=== PATIENT | female | born 1960 | race Caucasian/White ===

== ENCOUNTER → 2016-10-01 | Day surgery (SDC) | payer OTHER ==
[~2016-10-01] VITALS: Ht 162.6 cm; Wt 86.0 kg
[~2016-10-01] MED LIST: EFFEXOR XR75 MG PO; LEVOTHROID (S137 MCG PO; PRINIVIL (ZESTR20 MG PO; TYLENOL WITH C1 EACH PO; VITAMIN B-1000 MCG/M SUB-Q
--- NOTE | ~2016-10-01 | OR ---
PATIENT'S NAME: EMEKA SABILLON [facility] AGE: 56 Y [address] ROOM: [place] [address] LOCATION: [facility] [place] ADMIT DATE: 10/01/2016 OR/Procedure Report DISCHARGE DATE: FAMILY PHYSICIAN: Vanda Patel MD ATTENDING PHYSICIAN: Afsaneh Haile SURGEON: Afsaneh Haile MD POLISHER SAND: DATE OF PROCEDURE: 10/01/2016 POSTOPERATIVE DIAGNOSIS: Gross hematuria. POSTOPERATIVE DIAGNOSIS: Gross hematuria. PROCEDURE PERFORMED: Cystoscopy, bilateral retrograde pyelograms and bladder biopsy. ANESTHESIA: MAC. COMPLICATIONS: None. INDICATION FOR PROCEDURE: The patient is a 56-year-old female, who has experienced multiple episodes of gross hematuria. The patient has had normal office cystoscopy and CT scan with negative urine cytology. In spite of this, the patient has had further episodes of gross hematuria. DETAILS OF PROCEDURE: After informed consent obtained, the patient was taken to the operating room. A MAC anesthetic was applied and she was placed in a dorsal lithotomy position. The groin area was prepped and draped in normal sterile fashion. Cystoscope was introduced into the urethra and bladder without difficulty. Upon entering the bladder, no masses or lesions were noted. There were a few areas of erythema otherwise, the bladder appeared normal. First, the right ureteral orifice was identified and cannulated with opening the catheter. Contrast was injected. Following this, the left ureteral orifice was identified and again contrast was injected. Following this, biopsy forceps were introduced and 2 biopsy samples were taken from areas of erythema. These areas were then fulgurated for hemostasis. The bladder was emptied and the procedure terminated. The patient tolerated the procedure well and was transferred to recovery room in good condition. DETAILS OF RETROGRADE PYELOGRAM: On plain film, there were no bony abnormalities noted. With injection of contrast in the right ureter, the ureter was normal caliber, and the collecting system was also normal size without hydronephrosis. No filling defects or masses were noted. The system drained well. Retrograde pyelogram was then performed on the left side, which also had normal ureter and renal collecting system without masses, lesions, or PATIENT'S NAME: EMEKA SABILLON [facility] AGE: 56 Y [address] ROOM: [place] [address] LOCATION: [facility] [place] ADMIT DATE: 10/01/2016 OR/Procedure Report DISCHARGE DATE: FAMILY PHYSICIAN: Vanda Patel MD ATTENDING PHYSICIAN: Afsaneh Haile obstruction. This system also drained well. Retrograde pyelograms were normal bilaterally. AFSANEH HAILE MD ADIEL/modl /[id number] CC: Vanda Patel MD d: 10/01/16 2227 t: 10/18/16 0942, OPERATIVE SUMMARY
[2016-10-01 12:03] LABS: BASOPHIL # 0.1 K/uL (0.0-0.2); BASOPHIL % 1.3 %; EOSINOPHIL # 0.1 K/uL (0.0-0.5); EOSINOPHIL % 1.6 %; HEMATOCRIT 38.7 % (33.0-46.0); HEMOGLOBIN 12.2 g/dL (10.0-15.0); IMMATURE GRANULOCYTE % 0.3 %; LYMPHOCYTE # 2.5 K/uL (0.8-4.0); LYMPHOCYTE % 28.6 %; MCH 28.8 pg (27.0-34.0); MCHC 31.5 gm/dL (32.0-36.5); MCV 91.5 fl (83.0-98.0); MONOCYTE # 0.7 K/uL (0.0-1.0); MONOCYTE % 8.3 %; MPV 9.4 fl (9.4-12.4); NEUTROPHIL # (ANC) 5.2 K/uL (1.8-7.8); NEUTROPHIL % 59.9 %; NRBC % 0 /100WBC (0-0.00); PLATELET COUNT 375 K/uL (150-450); RBC 4.23 M/uL (3.50-5.50); RDW-CV 13.3 % (11.9-14.6); WBC 8.6 K/uL (4.0-11.0)
[2016-10-01 12:20] LABS: ALBUMIN 3.3 gm/dL (3.5-5.0); ALK PHOS 80 IU/L (33-138); ALT 20 IU/L (12-78); ANION GAP 15.2 (10.0-19.0); AST 17 IU/L (10-40); BLOOD UREA NITROGEN 12 mg/dL (6-24); CALCIUM 8.2 mg/dL (8.5-10.5); CHLORIDE 108 mMol/L (96-110); CO2 22 mMol/L (22-32); CREATININE 0.9 mg/dL (0.5-1.1); ESTIMATED GFR (MDRD EQUATION) > 60; POTASSIUM 4.2 mMol/L (3.7-5.1); SODIUM 141 mMol/L (135-145); TOTAL BILIRUBIN 0.3 mg/dL (0.0-1.5); TOTAL PROTEIN 6.9 g/dL (6.0-8.4)
== END ==
LOC: GPOC 09-27 08:00 → GSDC 08:00
PROVIDERS: Urology
PROC: 0TBB8ZX Excision of Bladder, Via Natural or Artificial Opening Endoscopic, Diagnostic (ICD-10-PCS; principal; 2016-10-01)
DX: R31.0 Gross hematuria (principal); E03.9 Hypothyroidism, unspecified; I10 Essential (primary) hypertension; K21.9 Gastro-esophageal reflux disease without esophagitis; F32.9 Major depressive disorder, single episode, unspecified; Z79.899 Other long term (current) drug therapy
CPT/HCPCS: J1956; J2001; J7120